=== PATIENT | male | born 1940 | race Caucasian/White ===

== ENCOUNTER 2017-02-24 08:05 | Emergency (ER) | payer MEDICARE ==
[~2017-02-24] VITALS: Ht 185.4 cm; Wt 79.8 kg
[2017-02-24 08:35] LABS: CLARITY,URINE TURBID (Clear); COLOR,URINE ORANGE (Yellow)
[2017-02-24 08:43] LABS: UA COLLECTION TYPE CLN CATCH MIDSTREAM
[2017-02-24 08:49] LABS: BACTERIA,URINE 4+ /HPF (Neg); MUCUS STRANDS NONE SEEN /LPF (Neg); SQUAMOUS EPITHELIAL CELL,UR FEW /LPF (FEW); TRANSITIONAL EPI CELLS,URINE FEW /HPF; WBC,URINE TNTC /HPF (0-4)
[2017-02-24 08:50] LABS: RBC,URINE 0-2 /HPF (0-2)
[2017-02-24] MEDS ORDERED: CEPH-572 PO (09:10)
[2017-02-24] MEDS ORDERED: PHEN-716 PO (09:10)
[2017-02-24] MEDS ORDERED: phenazopyridine 100mg tablet PO ONE (09:15)
[2017-02-24] MEDS ORDERED: cephalexin 500mg capsule PO ONE (09:15)
[2017-02-24 09:29] VITALS: BP 120/76
== END 2017-02-24 09:25 | disposition home or self-care (01) ==
LOC: ER 08:06
DX: N39.0 Urinary tract infection, site not specified (principal); Z88.1 Allergy status to other antibiotic agents
CPT/HCPCS: 81001; 87088; 99284